=== PATIENT | female | born 1985 | race Caucasian/White ===

== ENCOUNTER 2020-02-06 19:36 | Inpatient (IN) | payer OTHER ==
[2020-02-06] MEDS ORDERED: hydrALAZINE 20 MG/ML VIAL SLOW IVP PRN (20:10)
[2020-02-06 20:18] VITALS: BMI 35.1
--- NOTE | 2020-02-06 20:29 | PDOC.LDHP ---
Labor and Delivery H&P Chief complaint: other (elevated BP) HPI: 35 y/o at 34w0d, patient of Dr. Park, presents with elevated BPs at home. Has had palpitations for the last week. Started Mg supplements this week. Denies PATEL, vision changes, RUQ pain, VB, LOF, ctx, or other concerns. +FM. Has possible history of preeclampsia with prior pregnancies. ROS neg for HEENT, CV, pulm, GI, , neuro, psych, skin, musculoskeletal, or constitutional symptoms other than mentioned above. OB History Details: 3 prior term SVDs, possible preeclampsia with first 2 pregnancies. Past Medical History: Hernia, GERD Current medications: pre-ayla vitamins, iron, other ("Blood builder," Mg supplements) Previous surgical history: other (LEEP) Allergies/Adverse Reactions: Allergies Allergy/AdvReac Type Severity Reaction Status Date / Time pseudoephedrine HCl AdvReac Intermediate Anxiety Verified 02/06/20 20:14 [facility] Social history: none - Physical Exam Abnormal vital signs: mild range BPs General: NAD, resting Lungs: nonlabored breathing Extremeties: no edema FHT: category 1 (140s, mod variability, + accels, no decels) [place] contractions every: none - Assessment 35 y/o at 34w0d with no e/o preeclampsia but occasional severe range BPs and hypokalemia. PreE labs wnl. - Plan Plan: observation in L&D -: Will check EKG. Given 40meq K-dur, will repeat q4 hours x 3 doses total. Recheck K in am. Monitor BPs overnight, will treat as needed. Continuous monitoring while elevated BPs.
[2020-02-06 20:42] LABS: #Eosinphils 0.2 thou/uL (0.0-0.7); #Lymphocytes 1.7 thou/uL (1.20-3.40); #Monocytes 0.6 thou/uL (0.11-0.59); #Neutrophils 7.5 thou/uL (1.40-6.50); %Basophils 0.2 % (0.0-1.0); %Lymphocytes 16.6 % (21.0-51.0); %Monocytes 5.7 % (0.0-10.0); %Neutrophils 75.5 % (42.0-75.0); Hemoglobin 11.2 g/dL (12.0-16.0); Mean Corpuscular HGB CONC 34.2 g/dL (32.0-36.0); Mean Corpuscular Volume 93.6 fL (78.0-98.0); Mean Platelet Volume 7.9 fL (7.4-10.4); Platelet Count 219 thou/uL (130-400); RBC Distribution Width 12.9 % (11.5-14.5); Red Blood Cell (RBC) Count 3.51 mill/uL (4.20-5.40)
[2020-02-06 20:56] LABS: Protein, Urine Random Quant Less than 10 mg/dL (1-14)
[2020-02-06 21:00] LABS: ALT (SGPT) Less than 7 U/L (8-55); AST (SGOT) 9 U/L (5-34); Albumin 3.1 g/dL (3.5-5.0); Alkaline Phosphatase 99 U/L (40-110); Anion Gap 14 mmol/L (10-20); BUN (Urea Nitrogen) 6 mg/dL (7.0-18.7); Bilirubin, Total 0.2 mg/dL (0.2-1.2); Calc. Creatinine Clearance 212 mL/min (70-130); Calcium 8.7 mg/dL (7.8-10.44); Carbon Dioxide 21 mmol/L (22-29); Chloride 106 mmol/L (98-107); Estimated GFR-MDRD Greater than 90; Globulin 2.9 g/dL (2.4-3.5); Glucose 124 mg/dL (70-105); Sodium 138 mmol/L (136-145)
[2020-02-06] MEDS ORDERED: Betamet Acet/Betamet Na Ph 30 MG/5 ML VIAL ONE (21:03)
[2020-02-06 21:04] LABS: Potassium 2.9 mmol/L (3.5-5.1)
[2020-02-06] MEDS ORDERED: Ondansetron PF 4 MG/2 ML Vial IVP PRN (21:26)
[2020-02-06] MEDS ORDERED: Potassium Chloride 20 MEQ TAB PO SCH (21:31)
[2020-02-06] MEDS ORDERED: Labetalol HCl 100 MG/20 ML VIAL SLOW IVP PRN (21:52)
[2020-02-06] MEDS ORDERED: Labetalol HCl 100 MG/20 ML VIAL ONE (21:54)
[2020-02-06] MEDS: hydrALAZINE 20 MG/ML VIAL SLOW IVP PRN (23:08)
[2020-02-07] MEDS ORDERED: NIFEdipine 10 MG CAP PO SCH ×2 (00:28→15:00)
[2020-02-07] MEDS: hydrALAZINE 20 MG/ML VIAL SLOW IVP PRN ×2 (00:33→14:34)
[2020-02-07] MEDS: Calcium Carbonate 500 MG ChewTAB PO SCH ×3 (00:56→20:11)
[2020-02-07] MEDS: Potassium Chloride 20 MEQ TAB PO SCH ×2 (01:02→05:47)
--- NOTE | 2020-02-07 07:56 | PDOC.BPN ---
- Brief Progress Note S: Doing well overnight, no complaints. BPs all normal since 50. O: AFVSS Gen - AAO, NAD Chest - nonlabored Abd - soft, gravid, NTTP A/P: Discussed with Dr. Park this morning. Will continue to monitor BPs today. Can move to the floor if stable after lunch. K recheck pending.
[2020-02-07] MEDS: Acetaminophen 500 MG TAB PO PRN ×2 (10:36→20:12)
[2020-02-07 11:31] LABS: Anion Gap 17 mmol/L (10-20); BUN (Urea Nitrogen) 5 mg/dL (7.0-18.7); Calc. Creatinine Clearance 201 mL/min (70-130); Calcium 9.1 mg/dL (7.8-10.44); Carbon Dioxide 17 mmol/L (22-29); Chloride 107 mmol/L (98-107); Estimated GFR-MDRD Greater than 90; Glucose 140 mg/dL (70-105); Potassium 3.6 mmol/L (3.5-5.1); Sodium 137 mmol/L (136-145)
--- NOTE | 2020-02-07 14:50 | PDOC.EVN ---
Event Note - Event Note Event Note: Chain Saw Driver OBPARTH LDR11 BPs reviewed, noted some elevated pressures this pm around 1400 with max systolic 174. Received 5mg hydralazine. UP was negative Repeat K was normal today. Yesterday received hydralazine x3 and procardia x1 last pm. EGA: 34 weeks 1 day today Second celestone is at 2130. procardia 20mg po x 1 now Will order a OB sono for EFW
[2020-02-07] MEDS ORDERED: NIFEdipine 10 MG CAP ONE (14:54)
[2020-02-07] MEDS ORDERED: Calcium Gluc 4.6 MEQ/10 ML (100 MG/ML) SLOW IVP PRN (15:09)
[2020-02-07] MEDS ORDERED: Magnesium Sulfate 20 gm/500 ml 20 GM/500 ML BAG ONE (15:12)
--- NOTE | 2020-02-07 15:12 | PDOC.EVN ---
Event Note - Event Note Event Note: LDR11 1511: At bedside with Dr Prabhakar. Plan of care reviewed for IOL. Mag ordered for severe PIH based on BP criteria. Cytotec ordered. Dr Park and I have reviewed the plan of care DX: 34 weeks Severe Preeclampsia based on BPs Will notify Neonatology. OB sono ordered for presentation and EFW
[2020-02-07] MEDS ORDERED: Magnesium Sulfate 20 GM/WATER 500 ML BAG IVPB SCH (15:15)
--- NOTE | 2020-02-07 15:31 | PDOC.EVN ---
Event Note - Event Note Event Note: Patient requetsed to be on monitor technician
--- NOTE | 2020-02-07 17:20 | PDOC.EVN ---
Event Note - Event Note Event Note: Sono with normal KRISS, s=d. Baby is breech. Dr Park to be notified. Hold on IOL.
--- NOTE | 2020-02-07 17:43 | ULT ---
ULTRASOUND OB LIMITED: 02/07/20 HISTORY: induced hypertension. COMPARISON: None. FINDINGS: Real time hooks scale, color Doppler and spectral analysis of the gravid uterus was performed. Single viable intrauterine with average ultrasound age 34 week, 5 day. Estimated date of de livery 03/15/20. Estimated weight is 5 lb. 6 oz, 54th percentile. The placenta is anterior. The presentation is breech. BIOMETRY: Biparietal diameter 8.61 cm 34 week, 5 day Head circumference 31.62 cm 35 week, 4 day Abdominal circumference 30.39 cm 34 week, 2 day Femur length 6.66 cm 34 week, 2 day Amniotic fluid index: 13.9 cm. heart rate: 125 bpm. IMPRESSION: Single viable intrauterine with breech presentation and estimated weight of 5 lb. 6 o z, 54th percentile. POS: HOME
[2020-02-07] MEDS: Betamet Acet/Betamet Na Ph 30 MG/5 ML VIAL IM SCH ×2 (21:34→21:36)
[2020-02-08] MEDS: Misoprostol 100 MCG TAB VAG SCH ×3 (03:21→10:08)
[2020-02-08] MEDS: Calcium Carbonate 500 MG ChewTAB PO SCH ×4 (03:23→22:02)
[2020-02-08] MEDS: Acetaminophen 500 MG TAB PO PRN (04:53)
[2020-02-08] MEDS ORDERED: Bicitra 30 ML UDCUP ONE (07:04)
[2020-02-08] MEDS ORDERED: Bicitra 30 ML UDCUP PO SCH (07:30)
[2020-02-08] MEDS ORDERED: CEFAZOLIN 2 GM in Premix Bag 1 BAG IVPB SCH (07:30)
[2020-02-08] MEDS ORDERED: MORPHINE 5 MG/10 ML PF VIAL ONE (07:48)
[2020-02-08] MEDS ORDERED: Ketorolac Tromethamine 30 MG/ML VIAL ONE ×2 (07:49→13:56)
[2020-02-08] MEDS ORDERED: diphenhydrAMINE 50 MG/ML VIAL ONE (07:49)
[2020-02-08] MEDS ORDERED: Ondansetron PF 4 MG/2 ML Vial ONE (07:49)
[2020-02-08] MEDS ORDERED: Oxytocin 10 UNITS/ML VIAL ONE ×2 (07:49→08:49)
[2020-02-08] MEDS ORDERED: Dexamethasone 4 mg/ml Vial ONE (07:49)
[2020-02-08] MEDS ORDERED: PHENYLEPHRINE-NS 100 MCG/ML 10 ML SYRINGE ONE (07:49)
[2020-02-08] MEDS ORDERED: L&D-Morphine 4 MG/ML VIAL SLOW IVP PRN ×2 (08:07→13:37)
[2020-02-08] MEDS ORDERED: Ondansetron PF 4 MG/2 ML Vial IVP PRN (08:07)
[2020-02-08] MEDS ORDERED: Naloxone HCl 0.4 mg/ml Vial IVP PRN ×2 (08:07)
[2020-02-08] MEDS ORDERED: diphenhydrAMINE 50 MG/ML VIAL IVP PRN (08:07)
[2020-02-08] MEDS ORDERED: Ondansetron HCl/PF 4 MG/2 ML Vial IVP PRN ×2 (08:07→13:37)
[2020-02-08] MEDS ORDERED: Naloxone HCl 0.4 mg/ml Vial IV PRN (08:07)
[2020-02-08] MEDS ORDERED: HYDROmorphone 2 MG/ML VIAL SLOW IVP PRN ×2 (08:07→13:37)
[2020-02-08] MEDS ORDERED: Promethazine HCl 25 MG SUPP PR PRN (08:07)
[2020-02-08] MEDS ORDERED: Promethazine HCl 25 MG/ML VIAL IM PRN (08:07)
[2020-02-08] MEDS ORDERED: Meperidine HCl/PF 25 MG/ML VIAL SLOW IVP PRN ×2 (08:07→13:37)
[2020-02-08] MEDS ORDERED: Communication Order-Pharmacy FS SCH (08:15)
[2020-02-08] MEDS ORDERED: diphenhydrAMINE 25 MG CAP PO PRN (09:02)
[2020-02-08] MEDS ORDERED: Lanolin Ointment 7 GM TUBE TOP PRN (09:02)
[2020-02-08] MEDS ORDERED: Misoprostol 200 MCG TAB PR PRN (09:02)
[2020-02-08] MEDS ORDERED: Zolpidem Tartrate 5 MG TAB PO PRN (09:02)
[2020-02-08] MEDS ORDERED: HYDROcodone/Acetaminophen 5/325 mg Tablet PO PRN ×2 (09:02)
[2020-02-08] MEDS ORDERED: Simethicone Chewable 80 MG TAB PO PRN (09:02)
[2020-02-08] MEDS ORDERED: hydrALAZINE 20 MG/ML VIAL SLOW IVP PRN (09:02)
[2020-02-08] MEDS ORDERED: Acetaminophen 325 MG TAB PO PRN (09:02)
[2020-02-08] MEDS ORDERED: Adacel (T-DAP) 0.5 ML SYRINGE IM ONE (09:02)
--- NOTE | 2020-02-08 09:05 | PDOC.OPDEL ---
OB Operative/Delivery Note Delivery Dr/Surgeon: Xavier Assist: Dashawn Pre-Delivery Diagnosis: scheduled section, other (severe preeclampsia mahesh breech) Procedure/Post Delivery Dx: primary low transverse CS Weeks gestation: 34 Anesthesia: local - Findings A Sex: female Weight: 4 lb 15 oz - 1 min: 7 - 5 min: 8 - Additional Findings/Plan Placenta delivered: manual removal Estimated blood loss: 350 ml Post delivery plan: recovery in LICU
[2020-02-08] MEDS: Magnesium Sulfate 20 gm/500 ml 20 GM/500 ML BAG IVPB SCH ×2 (10:17→20:22)
[2020-02-08] MEDS ORDERED: Lidocaine 1% PF 5 ML VIAL ONE (12:55)
[2020-02-08] MEDS ORDERED: Iopamidol 370 76% 100 ML VIAL ONE (13:15)
--- NOTE | 2020-02-08 18:03 | OP ---
DATE OF PROCEDURE: 02/08/2020 PREOPERATIVE DIAGNOSES: 1. 35-year-old white female G4, P3, at 34-35 weeks' gestation. 2. Severe preeclampsia by blood pressure criteria. 3. Mahesh breech presentation. POSTOPERATIVE DIAGNOSES: 1. 35-year-old white female G4, P3, at 34-35 weeks' gestation. 2. Severe preeclampsia by blood pressure criteria. 3. Mahesh breech presentation. PROCEDURES PERFORMED: Primary low transverse section without extension. ANTENNA DESIGN ENGINEER SURGEON: Arash Tamez MD of the Hospitalist Service. ANESTHESIA: Spinal block. QUANTITATIVE BLOOD LOSS: 350 mL. COMPLICATIONS: None. COUNTS: Correct x2. ANTIBIOTICS: 2 g Ancef on-call to OR. FINDINGS: 1. Vigorous female , mahesh breech presentation, clear amniotic fluid noted. weight 4 pounds 15 ounces, Apgars 7 and 8. 2. Normal-appearing uterus, fallopian tubes, and ovaries. DISPOSITION: To recovery room for ICU management for continued magnesium prophylaxis due to preeclampsia. DESCRIPTION OF PROCEDURE: The patient previously received informed consent in regard to surgery. She was taken back to the operating room, where she received a spinal block without complications. She was placed in supine position, prepped and draped in usual sterile fashion. SCDs and New catheter were in place. A Pfannenstiel incision was made in the lower abdomen. This was carried down to the fascia. Fascia was nicked in the midline. Fascial incisions were extended bilaterally using curved Matthew scissors. The rectus fascia was dissected superiorly and inferiorly off the rectus muscle bellies. The rectus muscle bellies were divided in the midline. Peritoneal cavity was entered. James O retractors, size large was placed. Then a 2-cm hysterotomy incision was made above the reflection of the vesicouterine peritoneum. This was extended via finger fractionation. The amniotic bag was ruptured with clear fluid noted. The baby was delivered with the buttocks through the hysterotomy incision and then each leg was easily delivered. A corkscrewing technique was utilized to deliver each arm atraumatically and my funeral assistant continued external abdominal pressure which allowed for the head to remain flexed and I easily delivered the head with neck flexion. The mouth and nares of the infant were bulb suctioned on the abdomen. The cord was doubly clamped and cut and the baby was handed to the Abel Team in attendance. The usual cord blood was obtained. Placenta was manually extracted. The uterus was curetted of any remaining placental fragments with a dry laparotomy sponge. Hysterotomy incision was then closed with #1 Monocryl in a running locking fashion. Good hemostasis was confirmed. The pelvis was irrigated. Hemostasis again was noted along the hysterotomy site. James O retractor was removed. Hemostasis again was confirmed along the hysterotomy site. The rectus muscle bellies were inspected prior to fascial closure, noted to be hemostatic. The fascia was closed with 0 PDS suture x2 in a running continuous fashion. Subcutaneous tissue was irrigated and noted to be hemostatic prior to approximation with a running 3-0 plain gut. The skin was then closed with rosita. The surgery was terminated. No anesthetic or surgical complications occurred. Job ID: [id number]
[2020-02-08] MEDS ORDERED: Lactated Ringer's 500 ML IV SCH (20:45)
[2020-02-08 21:06] LABS: #Monocytes 0.8 thou/uL (0.11-0.59); #Neutrophils 13.6 thou/uL (1.40-6.50); %Basophils 0.1 % (0.0-1.0); %Eosinophils 0.1 % (0.0-10.0); %Monocytes 5.1 % (0.0-10.0); %Neutrophils 82.8 % (42.0-75.0); Hemoglobin 8.1 g/dL (12.0-16.0); Mean Corpuscular HGB CONC 34.4 g/dL (32.0-36.0); Mean Corpuscular Hemoglobin 32.6 pg (27.0-31.0); Mean Corpuscular Volume 94.6 fL (78.0-98.0); Mean Platelet Volume 7.7 fL (7.4-10.4); Platelet Count 249 thou/uL (130-400); RBC Distribution Width 13.2 % (11.5-14.5); White Blood Cell (WBC) Count 16.5 thou/uL (4.8-10.8)
--- NOTE | 2020-02-08 21:25 | PRG ---
DATE OF SERVICE: 02/08/2020 TIME OF SERVICE: 2039 hours. SUBJECTIVE: I was called to see patient for near syncopal episode. She was noted to be hypotensive with blood pressure of 60/30 x2, pulse 92, and the patient was complaining of feeling sweaty. She denied chest pain. She states she had some blurred vision. No seizure activity was witnessed by the nurse. Upon my presentation to the room, the patient was laying flat and was feeling somewhat better. Bedside ultrasound was performed with abdominal technique, which revealed no significant free fluid in the abdomen. Abdomen was soft and nondistended. The fundus was approximately at the umbilicus consistent with the patient's status of being approximately 12 hours post delivery. Urine output has been stable approximately 50 mL/h. Of note, the patient has a history of a clinically insignificant right bundle branch block, but no other cardiac abnormality. LABORATORY DATA: Laboratory from early this morning was reviewed, which revealed normal electrolytes including a normal potassium. IMPRESSION: Hypotension, uncertain etiology. No evidence of acute hemorrhage, doubt magnesium toxicity. PLAN: We will check stat CBC, basic metabolic, and magnesium level. Bolus 500 mL LR and follow blood pressures. Job ID: [id number]
[2020-02-08 21:32] LABS: Anion Gap 12 mmol/L (10-20); BUN (Urea Nitrogen) 5 mg/dL (7.0-18.7); Calc. Creatinine Clearance 237 mL/min (70-130); Carbon Dioxide 19 mmol/L (22-29); Chloride 102 mmol/L (98-107); Estimated GFR-MDRD Greater than 90; Glucose 129 mg/dL (70-105); Magnesium 5.8 mg/dL (1.6-2.6); Potassium 3.4 mmol/L (3.5-5.1); Sodium 130 mmol/L (136-145)
[2020-02-08] MEDS: Ketorolac Tromethamine 30 MG/ML VIAL IVP SCH ×2 (21:50→22:02)
[2020-02-08] MEDS: Ibuprofen 800 MG TAB PO SCH (22:02)
[2020-02-08] MEDS: Betamet Acet/Betamet Na Ph 30 MG/5 ML VIAL IM SCH (22:03)
[2020-02-08] MEDS: Docusate Calcium (SURFAK) 240 MG CAP PO SCH (22:03)
[2020-02-08] MEDS ORDERED: Lactated Ringer's 1,000 ML IV SCH (22:30)
--- NOTE | 2020-02-08 23:36 | CT ---
CT ABDOMEN AND PELVIS WITH CONTRAST: History: Intraabdominal hematoma. Comparison: 08-27-14 FINDINGS: Lung bases are clear. No pericardial effusion. There is small volume perihepatic fluid. Large hematomas of both rectus abdominus muscles with small active contrast in the left rectus muscle. There is also moderate volume hemorrhage and fluid along t he pericolic gutters bilaterally. Moderate hemorrhage within prevesicular space. Small volume hemorrhage within the cul-de-sac. The aortoiliac contour is not aneurysmal. Adrenal glands unremarkable. Nonobstructive right sided junior al calculi. IMPRESSION: 1. Small volume perihepatic and perisplenic hemorrhage with moderate pericolic gutter hemorrhage/sero ma. 2. Small volume hemorrhage in the pelvic cul-de-sac and also large bilateral rectus abdominus muscle hematomas, not unexpected after . 3. Small volume left rectus muscle active contrast extravasation. 4. Distended IVC suggesting normovolemia. POS: HOME
--- NOTE | 2020-02-09 00:20 | PRG ---
DATE OF SERVICE: 02/08/2020 TIME OF SERVICE: 2350 hours. Ms. Lew returned back from CT scan. I reviewed the images telephonically with Dr. Snow. We both agreed there was a small amount of blood present in the abdomen that was really consistent with intraoperative blood loss and not continuing hemorrhage. There may be a small volume left rectus muscle hematoma formation that is again not uncommon, it is consistent with bilateral rectus abdominis muscle hematoma noted as well. The IVC is well distended and it suggested normal volemia. The patient has responded well to fluid challenges. Blood pressures remained in the 120s over 60s with pulses in the 80s and 90s. Overall, the patient feels much better. Of note, the patient seems to feel much better as well when magnesium sulfate IV infusion is stopped. I discussed the patient's condition with Dr. Park and decided to proceed forward with 1 unit of PRBCs transfused and discontinued magnesium at this time. We will recheck an a.m. run hematocrit in the morning. Do not see indication on radiologic, laboratory, vitals, or patient exam for return to OR at this time. Hematoma in the rectus if present is likely going to remain self-limited and unlikely to require operative intervention. Job ID: [id number]
[2020-02-09 08:22] LABS: Hemoglobin 8.1 g/dL (12.0-16.0); Mean Corpuscular HGB CONC 34.7 g/dL (32.0-36.0); Mean Corpuscular Hemoglobin 32.8 pg (27.0-31.0); Mean Corpuscular Volume 94.4 fL (78.0-98.0); Mean Platelet Volume 7.8 fL (7.4-10.4); Platelet Count 220 thou/uL (130-400); RBC Distribution Width 13.2 % (11.5-14.5); Red Blood Cell (RBC) Count 2.48 mill/uL (4.20-5.40); White Blood Cell (WBC) Count 12.6 thou/uL (4.8-10.8)
--- NOTE | 2020-02-09 11:30 | EKG ---
Test Reason : STAT Blood Pressure : / mmHG Vent. Rate : 095 BPM Atrial Rate : 095 BPM P-R Int : 130 ms QRS Dur : 096 ms QT Int : 380 ms P-R-T Axes : 050 039 030 degrees QTc Int : 477 ms Normal sinus rhythm Nonspecific ST abnormality Abnormal ECG Confirmed by LUPILLO ANDERSON ([id number]) on 02/09/2020 11:29:39 AM Referred By: RONNY Confirmed By:LUPILLO ANDERSON
[2020-02-09] MEDS: Ibuprofen 800 MG TAB PO SCH ×3 (11:41→22:03)
[2020-02-09 12:33] LABS: Platelet Count 216 thou/uL (130-400)
--- NOTE | 2020-02-09 12:53 | PDOC.EVN ---
Event Note - Event Note Event Note: LICU. Feels much better. Hungry. No shortness of breath or syncopal feeling. O:P90 145/90 urine output 200ml+/hour. HGB 8.0 at 1200....HGB 8.1 at 0800. ABDOMEN soft/non distended. Incision c/d/i A/P post op day 1 from primary c/s for severe PIH/breech presentation at 34 weeks. Developed post surgery bleeding most likely from subfascial muscle beeder. Has received one unit of prbc's last PM...Bleeder has appeared to have spontaneously stopped. Hemoglobin remains stable. Cliniccaly much improved. Excellent urine output...Ok to transfer to floor. Oral pain meds. Prn blood pressure med if needed for persistent BP's>150/100...
[2020-02-09] MEDS ORDERED: Adacel (T-DAP) 0.5 ML SYRINGE IM ONE (12:55)
[2020-02-09] MEDS ORDERED: hydrALAZINE 20 MG/ML VIAL SLOW IVP PRN ×2 (12:55→15:24)
[2020-02-09] MEDS ORDERED: diphenhydrAMINE 25 MG CAP PO PRN (15:24)
[2020-02-09] MEDS ORDERED: Lanolin Ointment 7 GM TUBE TOP PRN (15:24)
[2020-02-09] MEDS ORDERED: HYDROcodone/Acetaminophen 5/325 mg Tablet PO PRN (15:24)
[2020-02-09] MEDS ORDERED: Ondansetron PF 4 MG/2 ML Vial IVP PRN (15:24)
[2020-02-09] MEDS: Ferrous Sulfate 325 MG TAB PO SCH (16:52)
[2020-02-09] MEDS: Ketorolac Tromethamine 30 MG/ML VIAL IVP SCH (19:47)
[2020-02-09] MEDS: Calcium Carbonate 500 MG ChewTAB PO SCH (19:48)
[2020-02-09] MEDS: Docusate Calcium (SURFAK) 240 MG CAP PO SCH ×2 (19:49→22:03)
[2020-02-09] MEDS: Simethicone Chewable 80 MG TAB PO PRN (22:03)
[2020-02-10] MEDS: Simethicone Chewable 80 MG TAB PO PRN ×2 (01:36→12:05)
[2020-02-10] MEDS: HYDROcodone/Acetaminophen 5/325 mg Tablet PO PRN ×2 (01:37→16:00)
[2020-02-10] MEDS: Ibuprofen 800 MG TAB PO SCH ×3 (05:37→21:58)
[2020-02-10 06:16] LABS: Hemoglobin 6.9 g/dL (12.0-16.0); Mean Corpuscular HGB CONC 34.1 g/dL (32.0-36.0); Mean Corpuscular Hemoglobin 32.5 pg (27.0-31.0); Mean Corpuscular Volume 95.3 fL (78.0-98.0); Mean Platelet Volume 7.4 fL (7.4-10.4); Platelet Count 181 thou/uL (130-400); RBC Distribution Width 13.3 % (11.5-14.5); Red Blood Cell (RBC) Count 2.11 mill/uL (4.20-5.40); White Blood Cell (WBC) Count 10.8 thou/uL (4.8-10.8)
--- NOTE | 2020-02-10 08:10 | PDOC.PP ---
Post Progress Note Post Day #: 2 Subjective: Denies any orthostatic symptoms. Moving around room well. Good pain control. PO intake tolerated: yes Flatus: yes Ambulation: yes Vital Signs (12 hours) Temp Pulse Resp BP Pulse Ox 02/10/20 07:54 98.6 F 90 20 122/81 98 02/10/20 05:36 98.6 F 89 16 126/66 02/09/20 23:15 99.4 F 91 16 126/77 02/09/20 20:23 99.5 F 104 H 02/09/20 20:08 100.3 F H 106 H 20 120/77 98 Weight Weight 211 lb - Physical Examination Abdominal: + bowel sounds, lochia, no distention, appropriately TTP Result Diagrams: 02/10/20 06:09 02/08/20 20:58 Additional Labs: Post Labs Blood Type A POSITIVE 02/07/20 18:38 - Assessment/Plan Post op day 2 from primary c section for breech at 34 weeks with severe PIH.Developed post op subfascial bleeding that sealed off. Required 1 unit prbc' s...Hgb after equilibrium reached this AM is 6.9. Patient is normotensive and not tachycardic. I offered an additional unit if symptomatic. Patient prefers to hold off since no symptoms. Iron therapy initiated. Continue observation...
[2020-02-10] MEDS: Ferrous Sulfate 325 MG TAB PO SCH ×2 (08:52→18:39)
[2020-02-10] MEDS: Docusate Calcium (SURFAK) 240 MG CAP PO SCH ×2 (08:52→21:57)
[2020-02-10] MEDS: Prenatal Vitamin 1 TAB PO SCH (08:52)
[2020-02-10] MEDS ORDERED: Milk Of Magnesia 30 ML UDCUP PO SCH (10:15)
[2020-02-10] MEDS ORDERED: Sodium Chloride 0.9% 10 ML ONE (18:09)
[2020-02-10 19:28] LABS: Hemoglobin 8.9 g/dL (12.0-16.0); Mean Corpuscular HGB CONC 34.9 g/dL (32.0-36.0); Mean Corpuscular Hemoglobin 32.9 pg (27.0-31.0); Mean Corpuscular Volume 94.3 fL (78.0-98.0); Mean Platelet Volume 7.2 fL (7.4-10.4); Platelet Count 206 thou/uL (130-400); RBC Distribution Width 13.2 % (11.5-14.5); White Blood Cell (WBC) Count 13.9 thou/uL (4.8-10.8)
--- NOTE | 2020-02-10 19:56 | PDOC.EVN ---
Event Note - Event Note Event Note: Additional one unit PRBC"S adminsitered . Post transfusion HCT 25.4%...Patient felt weak and fatigued with increased activity today in her room. HGB was 6.9..Additional unit administered...HGB now 8.9/hct 25.4%....
--- NOTE | 2020-02-10 21:09 | PDOC.EVN ---
Event Note - Event Note Event Note: Patient examined at bed side after transfusion. Feels like it is hard to focus. Gets some pounding in her head at times. Eating ok. Voiding a lot of urine. Had 2 BM's O: 152/91 P83 RR 16 O2 sat on RA 98%.T 99.3 Neck no JVD Chest CTA. Heart RRR/S1/S2 Abdomen is soft/ active bowel sounds. No rebound. pfanensteil incision intact - no oozing. upper ecchymosis stable. No vaginal bleeding EXT: no edema.@+ pedal pulses. A/P: S/p additional unit of PRBC's...Blood pressure is increasing. Will observe and treat for persistent>150/90...Would start procardia 30 mg xl and prn clonidine 0.1 mg...Will check CMP now...
[2020-02-10 22:55] LABS: ALT (SGPT) 7 U/L (8-55); AST (SGOT) 24 U/L (5-34); Alkaline Phosphatase 75 U/L (40-110); Anion Gap 11 mmol/L (10-20); BUN (Urea Nitrogen) 8 mg/dL (7.0-18.7); Bilirubin, Total 0.5 mg/dL (0.2-1.2); Calc. Creatinine Clearance 224 mL/min (70-130); Calcium 8.4 mg/dL (7.8-10.44); Carbon Dioxide 24 mmol/L (22-29); Chloride 107 mmol/L (98-107); Estimated GFR-MDRD Greater than 90; Globulin 2.4 g/dL (2.4-3.5); Glucose 94 mg/dL (70-105); Potassium 3.6 mmol/L (3.5-5.1); Protein, Total 5.4 g/dL (6.0-8.3); Sodium 138 mmol/L (136-145)
[2020-02-11] MEDS: HYDROcodone/Acetaminophen 5/325 mg Tablet PO PRN ×2 (04:46→22:17)
[2020-02-11] MEDS: Ibuprofen 800 MG TAB PO SCH ×3 (04:46→22:17)
--- NOTE | 2020-02-11 06:41 | PDOC.PP ---
Post Progress Note Post Day #: 3 Subjective: Had a good night's sleep. Feels better this morning. No fogginess feeling. chest sob or chest pain. No nausea... PO intake tolerated: yes Flatus: yes Ambulation: yes Vital Signs (12 hours) Temp Pulse Resp BP Pulse Ox 02/11/20 04:00 98.5 F 75 18 131/76 99 02/11/20 00:00 98.6 F 81 18 120/75 99 02/10/20 20:25 99.3 F 81 16 152/91 H 98 02/10/20 19:45 99.4 F 86 16 153/96 H 100 02/10/20 18:50 83 155/79 H Weight Weight 211 lb - Physical Examination General: NAD Cardiovascular: no m/r/g, RRR Respiratory: clear to auscultation bilaterally, non-labored breathing Abdominal: + bowel sounds, lochia, no distention, appropriately TTP Result Diagrams: 02/10/20 19:21 02/10/20 22:00 Additional Labs: Post Labs Blood Type A POSITIVE 02/07/20 18:38 - Assessment/Plan Post op day 3 from primary c section at 34 weeks for breech presentation and severe pih. developed post operative subfascial bleed/hematoma. Received unit number 2 prbc's yesterday evening for symptomatic anemia with more activity. post transfusion hgb was 8.9....CMP last pm wnl. Patient much improved clinically. Vitals are stable and normotensive . No tachycardia. O2 sats 99% on room air. Will increase activity today. plan for discharge 02/11...
[2020-02-11] MEDS: Ferrous Sulfate 325 MG TAB PO SCH ×2 (09:05→17:45)
[2020-02-11] MEDS: Prenatal Vitamin 1 TAB PO SCH (09:06)
[2020-02-11] MEDS: Docusate Calcium (SURFAK) 240 MG CAP PO SCH ×2 (09:06→22:17)
[2020-02-11] MEDS ORDERED: NIFEdipine XL 30 MG TAB PO SCH (16:00)
[2020-02-11] MEDS: Simethicone Chewable 80 MG TAB PO PRN (22:18)
[2020-02-12] MEDS: Ibuprofen 800 MG TAB PO SCH (06:21)
--- NOTE | 2020-02-12 07:53 | PDOC.PP ---
Post Progress Note Post Day #: 4 Subjective: Tolerating diet...Ambulated to nicu 2 times yesterday. No lightheadedness. PO intake tolerated: yes Flatus: yes Ambulation: yes Vital Signs (12 hours) Temp Pulse Resp BP Pulse Ox 02/12/20 05:00 98.1 F 80 17 120/75 02/12/20 00:15 98.1 F 79 18 118/78 02/11/20 20:00 99.0 F 97 18 143/85 H 100 Weight Weight 211 lb Result Diagrams: 02/10/20 19:21 02/10/20 22:00 Additional Labs: Post Labs Blood Type A POSITIVE 02/07/20 18:38 - Assessment/Plan Post op day 4. Doing well. Normotensive on procardia 30 mg/xl...D/c to bed and breakfast..rosita out tomorrow.
[2020-02-12 07:59] VITALS: BP 130/87; TEMP 98.7
[2020-02-12] MEDS: Prenatal Vitamin 1 TAB PO SCH (08:20)
[2020-02-12] MEDS: Docusate Calcium (SURFAK) 240 MG CAP PO SCH (08:20)
[2020-02-12] MEDS: Ferrous Sulfate 325 MG TAB PO SCH (08:20)
[2020-02-12] MEDS ORDERED: NIFEdipine XL 30 MG TAB PO SCH (09:00)
--- NOTE | 2020-02-13 02:55 | DIS ---
DATE OF ADMISSION: 02/07/2020 DATE OF DISCHARGE: 02/12/2020 DIAGNOSES: 1. Severe preeclampsia by blood pressure criteria at 34 weeks gestation. 2. Breech presentation. 3. Postoperative hemorrhage. 4. Acute blood loss anemia from postoperative hemorrhage. 5. Hypokalemia, corrected. PROCEDURES PERFORMED: 1. Primary low transverse section. 2. CT abdomen and pelvis for postoperative hemorrhage evaluation. 3. 2 units of packed red blood cells. SUMMARY OF HOSPITAL COURSE: The patient is a 35-year-old, G4, P3, at 34 weeks, was admitted on 02/06 for high blood pressures, which she was noted with home monitoring. She was evaluated in Labor and Delivery __Normal PIH labs were noted. She was noted to have recurrent elevated blood pressures in the 160 to 170 systolic ranges and 100 diastolic ranges that persisted over several hours. As she was monitored in L and D for 24 hours, it confirmed her to be severely preeclamptic by blood pressure criteria. During her antepartum evaluation in L and D, she did receive betamethasone for lung maturity initiation of the fetus. From evaluation, an ultrasound was performed and she was noted to be mahesh breech presentation in the evening of 02/07 and therefore, she was scheduled for a primary section on the morning of 02/08. She was placed on magnesium for seizure prophylaxis. She underwent a primary low transverse section on the morning of 02/07. She delivered a vigorous female, 4 pounds 15 ounces, Apgars 7 and 8. She was continued on magnesium for seizure prophylaxis and blood pressure monitoring at the time of LICU. QBL at the surgery was 508 mL. In the later evening of 02/08/2020, the patient had some episodes where she felt lightheaded and had some palpitations. She had some hypotensive episode, systolic is 70 with pulse of 90. She received IV fluid bolus, which improved her symptoms and normalized her blood pressure. She had a stat hematocrit obtained, which was noted to be 28%. She was continued to be observed in the LICU and developed another hypotensive episode, which again responded to IV fluid bolus. At this time, a CT scan of the abdomen and pelvis with contrast was ordered by the OB hospitalist, Dr. Tamez. On the CT scan, she had noted some small volume perihepatic and perisplenic hemorrhage with small volume hemorrhage in the pelvic cul-de-sac. She also had evidence of some bilateral rectus abdominis muscle hematomas, which were not unexpected after section. There was a small volume left rectus muscle, noted some small active contrast extravasation. Her inferior vena cava was well distended, suggesting normovolemia. The OB hospitalist administered her 1 unit of packed red cells and she improved with her orthostatics symptoms after the first blood transfusion. Serial hemoglobins noted her to remain stable at 8.0. The patient was then transferred to the unit and off magnesium on postop day #1, which was 02/08. Her equilibration hemoglobin was noted to be 7.0 on after stable hemoglobin noted at 8.0 on postop day #1, so postop day #2 hemoglobin was 7.0. The patient was observed and she did have some elements of fatigue and feeling somewhat lightheaded with more activity and therefore, she received another 1 unit of packed red cells on the evening of postop day #2. CMP was performed, which was normal. O2 sats remained normal in the 98% to 99% on room air. Her blood pressure and vitals also remained normal during this time. After 1 unit packed red cell transfusion, she was observed the next day on postop day #3 and tolerated. Activity much improved. Her postop transfusion hemoglobin was 8.9. She was noted to become more hypertensive with consistent pressures in the 140 to 150 over 80 to 90 on postop day #3 and then we initiated Procardia 30 mg XL daily. Now after initiation of Procardia, her blood pressures have been in the 120s over 70s. Pulse is 80. She remains afebrile and is tolerating activities of daily living without significant issues. We will discharge the patient home _to bed and breakfast in house due to premature infant care. I will remove her rosita on postop day #5. Prescription for [place] 5 mg one q.4 to 6 hours p.r.n. pain will be called out along with Procardia 30 mg XL per day. She is instructed to check her blood pressures b.i.d. with her home blood pressure cuff and to notify me if she has any hypotensive pressures less than 100/60 or hypertensive pressures greater than 150/100. Job ID: [id number] [facility] SYSTEMIleana
== END 2020-02-12 10:30 | disposition home or self-care (01) | DRG 787 ==
LOC: L&D/OP 19:36 → L&D 02-07 07:51 → 3SW 02-09 14:57
PROVIDERS: ADMIT Obstetrics & Gynecology; ATTEND Obstetrics & Gynecology
PROC: 10D00Z1 Extraction of Products of Conception, Low, Open Approach (ICD-10-PCS; principal; 2020-02-08)
PROC: 30233N1 Transfusion of Nonautologous Red Blood Cells into Peripheral Vein, Percutaneous Approach (ICD-10-PCS; 2020-02-09)
DX: O32.1XX0 Maternal care for breech presentation, not applicable or unspecified (principal); O72.1 Other immediate postpartum hemorrhage; D62 Acute posthemorrhagic anemia; Z37.0 Single live birth; O99.62 Diseases of the digestive system complicating childbirth; K21.9 Gastro-esophageal reflux disease without esophagitis; O14.14 Severe pre-eclampsia complicating childbirth; Z3A.34 34 weeks gestation of pregnancy; O90.81 Anemia of the puerperium; O99.284 Endocrine, nutritional and metabolic diseases complicating childbirth; E87.6 Hypokalemia
CPT/HCPCS: 36415; 36430; 51702; 74177; 76815; 80048; 80053; 82570; 83735; 84156; 85025; 85027; 86850; 86900; 86901; 93005; 93010; 99285; J0360; J0690; J0702; J1100; J1200; J1885; J2001; J2274; J2405; J2590; J3475; P9016; Q9967

== ENCOUNTER 2021-07-07 19:00 | Outpatient (CLI) | payer OTHER | END 2021-07-07 19:01 | disposition home or self-care (01) | LOC: SLEEPLAB 19:00 | PROVIDERS: ATTEND Family Medicine | DX: G47.33 Obstructive sleep apnea (adult) (pediatric) (principal); R53.83 Other fatigue; K21.9 Gastro-esophageal reflux disease without esophagitis; G47.00 Insomnia, unspecified; F41.9 Anxiety disorder, unspecified; R06.83 Snoring | CPT/HCPCS: 95806 ==